=== PATIENT | male | born 1960 | race Caucasian/White ===

== ENCOUNTER 2022-07-21 13:34 | Observation (INO) ==
[~2022-07-21 13:34] MED LIST: NS 0.9% 1000 ml BAG 1,000 ML IV ONE
[2022-07-21] MEDS ORDERED: Midazolam 10 mg/10 ml VIAL 1 mg/ml 10 ml VIAL (10 mg) IV SLOW PU ONE (15:26)
[2022-07-21] MEDS ORDERED: fentaNYL 100 mcg/2 ml 50 MCG/ML VIAL IV SLOW PU ONE (15:26)
[2022-07-21] MEDS ORDERED: NS 0.9% 1000 ml BAG 1,000 ML IV SCH ×2 (15:30→17:30)
[2022-07-21] MEDS ORDERED: Heparin 1,000 UNIT/ML 10 ml (10,000 UNITS) CATHLAB/DIALYSIS ONE (16:18)
[2022-07-21] MEDS ORDERED: Midazolam 5 mg/5 ml VIAL 1 mg/ml 5 ml VIAL (5 mg) ONE (16:18)
[2022-07-21] MEDS ORDERED: Heparin 2 UNITS/ML 1000 mls 1,000 ML IV ONE ×2 (16:18→16:20)
[2022-07-21] MEDS ORDERED: VERAPAMIL 2.5 MG/ML 2 ML VIAL ** 5 mg/2 ml ONE (16:18)
[2022-07-21] MEDS ORDERED: fentaNYL 100 mcg/2 ml 50 MCG/ML VIAL ONE (16:18)
[2022-07-21] MEDS ORDERED: Iohexol 350 (CONTRAST) 200 ML MDV IV ONE (16:19)
[2022-07-21] MEDS ORDERED: Lidocaine 1% MPF 5 ML VIAL ONE (16:19)
[2022-07-21] MEDS ORDERED: nitroGLYCERIN DRIP 25,000 MCG/250 ML BTL ONE (16:19)
[2022-07-21 16:27] LABS: ABS Eosinophils 0.2 10^3/uL (0.0-0.5); ABS Lymphocytes 1.5 10^3/uL (1.0-4.8); ABS Monocytes 0.6 10^3/uL (0.0-1.1); ABS Neutrophils 4.9 10^3/uL (1.5-7.6); Eosinophil % 2.5 %; Hematocrit 42.1 % (38-53); Hemoglobin 14.4 g/dL (13.2-16.3); Lymphocyte % 20.8 %; Mean Corpuscular Hemoglobin 31.8 pg (27-33); Mean Corpuscular Hgb Conc 34.2 g/dL (31-36); Mean Platelet Volume 7.5 fL (7.5-11.2); Platelet Count 321 10^3/uL (150-450); Red Blood Count 4.52 10^6/uL (4.06-5.63); Red Cell Distribution Width 12.8 % (12-17); White Blood Count 7.2 10^3/uL (3.6-10.2)
[2022-07-21 16:38] LABS: Activated Partial Thrombo Time 29.3 seconds (26.0-38.0)
[2022-07-21 17:16] LABS: Calcium 9.6 mg/dL (8.6-10.3); Creatinine, Serum 0.95 mg/dL (0.67-1.17); Potassium 4.5 mmol/L (3.5-5.0); eGFR CKD-EPI 91.6 (>60)
== END 2022-07-22 17:00 | disposition short-term general hospital (02) ==
LOC: ICU 13:34 → CHICARD 13:34
PROVIDERS: ADMIT Specialist; ATTEND Specialist